=== PATIENT | female | born 2000 | race Caucasian/White ===

== ENCOUNTER 2023-07-30 18:40 | Inpatient (IN) | payer BC ==
[2023-07-30] MEDS ORDERED: TRANEXAMIC 1,000 MG/100ML-NACL 1,000 MG in EMPTY BAG 1 BAG IV PRN (19:08)
[2023-07-30] MEDS ORDERED: CARBOPROST TROMETHAMINE 250 MCG/ML 1 ML AMP IM PRN (19:08)
[2023-07-30] MEDS ORDERED: METHYLERGONOVINE 0.2 MG/ML 1 ML AMP IM PRN (19:08)
[2023-07-30] MEDS ORDERED: LIDOCAINE 0.5% (PF) 5 MG/ML (50 ML SDV) SQ PRN (19:08)
[2023-07-30] MEDS ORDERED: TERBUTALINE 1 MG/ML VIAL SQ PRN (19:08)
[2023-07-30] MEDS ORDERED: miSOPROStoL 200 MCG TAB PO PRN (19:08)
[2023-07-30] MEDS ORDERED: OXYTOCIN 10 UNIT/ML 1 ML VIAL IM PRN (19:08)
[2023-07-30] MEDS: LACTATED RINGERS 1,000 ML IV SCH (19:20)
[2023-07-30 19:42] LABS: Basophils % (A) 0 %; Eosinophils # (A) 0.1 k/uL (0-0.7); Eosinophils % (A) 1 %; HGB 11.3 gm/dL (11.4-16.0); Lymphocytes # (A) 1.6 k/uL (1.0-4.8); Lymphocytes % (A) 11 %; MCH 29.7 pg (25.0-35.0); MCHC 35.2 g/dL (31.0-37.0); MCV 84.3 fL (80.0-100.0); Monocytes # (A) 0.6 k/uL (0-1.0); Monocytes % (A) 4 %; Neutrophils # (A) 11.6 k/uL (1.3-7.7); Neutrophils % (A) 82 %; Platelet Count 198 k/uL (150-450); RDW 13.7 % (11.5-15.5); WBC 14.1 k/uL (3.8-10.6)
[2023-07-30] MEDS ORDERED: ROPIVACAINE 5 MG/ML 30 ML VIAL ONE (19:52)
[2023-07-30] MEDS ORDERED: fentaNYL (PF) 50 MCG/ML 5 ML AMP ONE (19:52)
[2023-07-30] MEDS ORDERED: SODIUM CHLORIDE 0.9% 250 ML BAG ONE (19:52)
[2023-07-31] MEDS: LACTATED RINGERS 1,000 ML IV SCH ×2 (02:00→06:23)
--- NOTE | 2023-07-31 03:05 | P.HPOB ---
History of Present Illness H&P Date: 07/31/23 Chief Complaint: labor 23 year old presents at 40 weeks 1 day in active labor. Her cervix was 5 cm dilated, 100% effaced, and -2 station. She is edmund irregularly. heart tones 140 with moderate variability and reactive. Review of Systems All systems: negative Constitutional: Denies chills, Denies fever Eyes: denies blurred vision, denies pain Ears, nose, mouth and throat: Denies headache, Denies sore throat Cardiovascular: Denies chest pain, Denies shortness of breath Respiratory: Denies cough Gastrointestinal: Denies abdominal pain, Denies diarrhea, Denies nausea, Denies vomiting Genitourinary: Denies dysuria, Denies hematuria Musculoskeletal: Denies myalgias Integumentary: Denies pruritus, Denies rash Neurological: Denies numbness, Denies weakness Psychiatric: Denies anxiety, Denies depression Endocrine: Denies fatigue, Denies weight change Past Medical History Past Medical History: No Reported History History of Any Multi-Drug Resistant Organisms: None Reported Past Surgical History: No Surgical Hx Reported Past Anesthesia/Blood Transfusion Reactions: No Reported Reaction Past Psychological History: No Psychological Hx Reported Smoking Status: Never smoker Past Alcohol Use History: None Reported Past Drug Use History: None Reported - Past Family History Father Family Medical History: No Reported History Medications and Allergies Home Medications Medication Instructions Recorded Confirmed Type No Known Home Medications 07/30/23 07/30/23 History Allergies Allergy/AdvReac Type Severity Reaction Status Date / Time No Known Allergies Allergy Verified 07/30/23 18:52 Exam Osteopathic Statement: *. No significant issues noted on an osteopathic structural exam other than those noted in the History and Physical/Consult. Vital Signs Temp Pulse Resp BP 07/30/23 19:12 97.9 F 101 H 16 120/73 07/30/23 19:04 97.9 F 101 H 16 120/73 Intake and Output 07/30/23 07/30/23 07/31/23 14:59 22:59 06:59 Other: Weight 64.41 kg Heart: Regular rate and rhythm Lungs: Clear to auscultation bilaterally Abdomen: Soft, nontender Extremities: Negative Homans sign Results Result Diagrams: 07/30/23 19:19 Abnormal Lab Results - Last 24 Hours (Table) 12/15/23 Range/Units 19:19 WBC 14.1 H (3.8-10.6) k/uL Hgb 11.3 L (11.4-16.0) gm/dL Hct 32.0 L (34.0-46.0) % Neutrophils # 11.6 H (1.3-7.7) k/uL Assessment and Plan (1) 40 weeks gestation of Current Visit: Yes Status: Acute Code(s): Z3A.40 - 40 WEEKS GESTATION OF SNOMED Code(s): 08211113 (2) Active labor Current Visit: Yes Status: Acute Code(s): JDP4289 - SNOMED Code(s): 949986044 Plan: 1. Admit to family place 2. Expectant management 3. Anticipate normal vaginal delivery
[2023-07-31] MEDS ORDERED: BENZOCAINE/MENTHOL SPRAY 1 GM/SPRAY AEROSOL TOPICAL PRN (03:07)
[2023-07-31] MEDS ORDERED: ZOLPIDEM 5 MG TAB PO PRN (03:07)
[2023-07-31] MEDS ORDERED: LANOLIN CREAM 5 GM TUBE TOPICAL PRN (03:07)
[2023-07-31] MEDS ORDERED: HYDROCORTISONE 2.5% RECTAL CREAM 30 GM TUBE RECTAL PRN (03:07)
[2023-07-31] MEDS ORDERED: SIMETHICONE 80 MG CHEWABLE PO PRN (03:07)
[2023-07-31] MEDS ORDERED: diphenhydrAMINE 25 MG CAP PO PRN (03:07)
[2023-07-31] MEDS ORDERED: diphenhydrAMINE 50 MG CAP PO PRN (03:07)
[2023-07-31] MEDS ORDERED: diphenhydrAMINE 50 MG/ML 1 ML VIAL IVP PRN ×2 (03:07)
--- NOTE | 2023-07-31 03:07 | P.PROBDLV ---
Vaginal Delivery Note - . Vaginal Delivery Note: 23 year old presents at 40 weeks 1 day in active labor. Her cervix was 5 cm dilated, 100% effaced, and -2 station. She is edmund irregularly. heart tones 140 with moderate variability and reactive. Patient was uncomfortable she did get an epidural. Amniotomy performed at 2257 when she was 9 cm dilated and clear fluid noted. Her cervix was completely dilated at 00 47. She pushed, delivered a viable male infant over intact perineum under epidural anesthesia at 2:38 AM. Head delivered OA, nuchal cord 1 easily reduced, anterior shoulder delivered gentle downward guidance for by posterior shoulder and rest of body. Nose and mouth bulb suctioned, cord clamped and cut, infant placed on mother's abdomen. Apgars 8, 9, weight 7 pounds 7.6 ounces. Placenta delivered spontaneously, intact with three-vessel cord at 2:40 AM. Vagina, cervix, perineum inspected. Second-degree midline laceration was repaired with 3-0 Vicryl. Estimated blood loss 100 mL. Mother and baby in stable condition.
[2023-07-31] MEDS ORDERED: OXYTOCIN 30 UNITS/500 ML NS 30 UNIT in SALINE 1 500ML.BAG IV SCH (03:15)
[2023-07-31] MEDS: IBUPROFEN 600 MG TAB PO PRN ×3 (03:37→17:34)
[2023-07-31] MEDS: ACETAMINOPHEN TAB 325 MG TAB PO PRN ×2 (06:38→20:10)
[2023-07-31] MEDS: SENNOSIDES-DOCUSATE SODIUM 1 EACH TAB PO SCH ×2 (09:36→20:10)
[2023-08-01] MEDS: IBUPROFEN 600 MG TAB PO PRN ×3 (00:03→18:27)
--- NOTE | 2023-08-01 05:45 | P.DS ---
Providers Date of admission: 07/30/23 19:03 Expected date of discharge: 08/01/23 Attending physician: Arleen Gonzalez Primary care physician: Stated None - Discharge Diagnosis(es) (1) 40 weeks gestation of Current Visit: Yes Status: Resolved (2) Active labor Current Visit: Yes Status: Resolved (3) Normal vaginal delivery Current Visit: Yes Status: Acute Hospital Course: Reason presented in active labor. She underwent a normal vaginal delivery. course was uneventful. She denies nausea, vomiting, chest pain, shortness of breath or calf pain. She'll be discharged home day #1 in stable condition to follow-up with me in 6 weeks. Plan - Discharge Summary New Discharge Prescriptions: New Ibuprofen [Motrin] 600 mg PO Q6HR PRN #30 tab PRN Reason: Mild Pain (Scale 1 To 3) Discharge Medication List Ibuprofen [Motrin] 600 mg PO Q6HR PRN #30 tab 08/01/23 [Rx] Follow up Appointment(s)/Referral(s): Arleen Gonzalez DO [Doctor of Osteopathic Medicine] - 6 Weeks Discharge Disposition: HOME SELF-CARE
[2023-08-01] MEDS: SENNOSIDES-DOCUSATE SODIUM 1 EACH TAB PO SCH (07:32)
[2023-08-01 07:33] LABS: Basophils % (A) 0 %; Eosinophils # (A) 0.2 k/uL (0-0.7); Eosinophils % (A) 2 %; Lymphocytes # (A) 2.4 k/uL (1.0-4.8); Lymphocytes % (A) 20 %; MCH 28.5 pg (25.0-35.0); MCHC 33.2 g/dL (31.0-37.0); MCV 85.7 fL (80.0-100.0); Monocytes # (A) 0.5 k/uL (0-1.0); Monocytes % (A) 5 %; Neutrophils # (A) 8.5 k/uL (1.3-7.7); Neutrophils % (A) 72 %; Platelet Count 159 k/uL (150-450); RBC 3.15 m/uL (3.80-5.40); RDW 13.6 % (11.5-15.5); WBC 11.8 k/uL (3.8-10.6)
[2023-08-01 07:48] VITALS: RESP 16
[2023-08-01 17:34] VITALS: BP 97/62; PULSE 73; TEMP 98.3
== END 2023-08-01 18:30 | disposition home or self-care (01) | DRG 807 ==
LOC: FBPOP 18:40 → 4FBP 19:03
PROVIDERS: ADMIT Obstetrics & Gynecology; ATTEND Obstetrics & Gynecology
PROC: 10E0XZZ Delivery of Products of Conception, External Approach (ICD-10-PCS; principal; 2023-07-31)
PROC: 0KQM0ZZ Repair Perineum Muscle, Open Approach (ICD-10-PCS; 2023-07-31)
DX: O69.81X0 Labor and delivery complicated by cord around neck, without compression, not applicable or unspecified (principal); Z37.0 Single live birth; O70.1 Second degree perineal laceration during delivery; Z3A.40 40 weeks gestation of pregnancy
CPT/HCPCS: 59025; 85025; 86850; 86900; 86901; 99213